=== PATIENT | male | born 1965 | race Caucasian/White ===

== ENCOUNTER 2018-08-01 06:16 | Day surgery (SDC) | payer OTHER ==
[~2018-08-01 06:16] MED LIST: Buffered Lidocaine 0.9% SYRIN* 5 ML/SYR SYRINGE INTRADERM ONE; Dexamethasone IV* 4 MG/ML 1 ML (4 MG) IV SLOW PU ONE
[2018-08-01] MEDS ORDERED: Buffered Lidocaine 0.9% SYRIN* 5 ML/SYR SYRINGE ONE (06:43)
[2018-08-01] MEDS ORDERED: Dexamethasone IV* 4 MG/ML 1 ML (4 MG) ONE (06:43)
[2018-08-01] MEDS ORDERED: ceFAZolin 2 GM in NS PREMIX(*) 2 GM/100 ML BAG IVPB ONE (06:44)
[2018-08-01] MEDS ORDERED: Atracurium* 10 MG/ML 10 ML VIAL ONE (07:15)
[2018-08-01] MEDS ORDERED: Midazolam* 1 MG/ML 5 ML VIAL (5 MG) ONE (07:15)
[2018-08-01] MEDS ORDERED: fentaNYL* 50 MCG/ML 2 ML VIAL (100 MCG VIAL) ONE ×2 (07:15→07:47)
[2018-08-01] MEDS ORDERED: Ondansetron INJ* 2 MG/ML VIAL ONE (07:16)
[2018-08-01] MEDS ORDERED: Lidocaine 2% PF * 5 ML VIAL ONE (07:16)
[2018-08-01] MEDS ORDERED: Propofol* 10 MG/ML 20 ML BTL IV PUSH ONE (07:16)
[2018-08-01] MEDS ORDERED: ROPIVACAINE 5 MG/ML 30 ML BTL (0.5%) ONE (07:21)
[2018-08-01] MEDS ORDERED: Ropivacaine* 2 MG/ML 20 ML VIAL (0.2%) ONE (07:36)
[2018-08-01] MEDS ORDERED: methylPREDNISolone ACETATE 80* 80 MG/ML 1 ML VIAL ONE (08:32)
[2018-08-01] MEDS ORDERED: Scopolamine 1.5 mg* PATCH TRANSDERM PRN (08:37)
[2018-08-01] MEDS ORDERED: fentaNYL* 50 MCG/ML 2 ML VIAL (100 MCG VIAL) IV PRN (08:37)
[2018-08-01] MEDS ORDERED: Ondansetron INJ* 2 MG/ML VIAL IV PRN (08:37)
[2018-08-01] MEDS ORDERED: HYDROmorphone INJ1* 1 MG/ML SYRINGE IV PRN (08:37)
[2018-08-01] MEDS ORDERED: DiMENhydriNATE IV* 50 MG/ML VIAL IV PUSH PRN (08:37)
[2018-08-01] MEDS ORDERED: oxyCODONE/Acetamin 5/325 MG* TAB PO PRN (08:37)
[2018-08-01] MEDS ORDERED: Naloxone* 0.4 MG/ML 1 ML VIAL IV PRN (08:37)
[2018-08-01 10:16] VITALS: BP 122/79
[2018-08-01] MEDS ORDERED: Ondansetron ODT TAB* 4 MG ONE (10:32)
--- NOTE | 2018-08-03 07:24 | OP ---
DATE OF OPERATION: 08/01/18 - [facility] DATE OF : 63. SURGEON: Elfego Frank M.D. DENTOFACIAL ORTHOPEDICS DENTIST: GILBERTO Barragan. An staff physical therapy assistant was present for the entirety of the case to help with positioning, retraction, and was utilized throughout all portions of the case. ANESTHESIOLOGIST: Dr. Malik. ANESTHESIA: General with interscalene block. PRE-OP DIAGNOSIS: Left shoulder impingement with possible rotator cuff tear and a superior labrum anterior and posterior type-2 tear. POST-OP DIAGNOSIS: Left shoulder impingement with possible rotator cuff tear and a superior labrum anterior and posterior type-2 tear. OPERATIVE PROCEDURE: Left shoulder arthroscopy with: 1. Extensive glenohumeral debridement. 2. Decompression with acromioplasty. 3. Subpectoral biceps tenodesis. 4. 80 mg injection of Depo-Medrol. INDICATIONS: Wesly Gomez is a 52-year-old male with persistent left shoulder pain refractory to conservative management. Risks and benefits of the surgery were discussed at length including, but not limited to bleeding; infection; damage to nerves, vessels, surrounding structures; wound nonhealing; persistent pain; need for further surgery; scarring; stiffness; incomplete relief of symptoms; and risks of anesthesia. He is elected to proceed with surgery. DESCRIPTION OF PROCEDURE: The patient was greeted in the preoperative area by the attending surgeon. Correct extremity was marked and the consent was confirmed. The patient underwent interscalene nerve block by the anesthesiologist after which he was brought back to the operative suite, he was placed in supine position on the operative table, he underwent general anesthesia and underwent endotracheal intubation after which he was placed in a right lateral decubitus position. All bony prominences were padded. He was secured with a peg board. The left arm was draped unsterile with 10 pounds of traction. The left shoulder was then prepped and draped in the usual sterile fashion beginning with chlorhexidine soap, scrub, and alcohol wipe. After appropriate surgical pause indicating side, site, and procedure, and administration of antibiotics, the standard posterolateral portal was made sharply with an 11-blade. Scope was introduced into the joint and the joint was examined. There was abundant hyperemia and erythematous tissue. There was evidence of type 2 SLAP tear with displacement. The undersurface of the supraspinatus was intact. The subscapularis had mild fraying less than 5%. The anterior portal was made in outside-in fashion. The shaver was used to debride back the anterior, posterior, and superior labrum. Biceps was tenotomized for later tenodesis. The undersurface of the subscap was then debrided back to make sure that it was less than 5% involving. Recess intact. There was grade 0 to 1 changes at the glenohumeral joint. Attention was then directed to the subacromial space. The scope was positioned in subacromial space. There was abundant bursa that was present. This was then debrided back using shaver. An electrocautery device was used to skeletonize the acromion. The acromioplasty was then done using a 4-0 oval bur. Once this was completed, attention was directed to the rotator cuff. The cuff was then gently probed with a blunt probe and there was very partial thickness tear was approximately 2 mm in bursal-sided tearing. This was then debrided back. The remainder of the cuff was found to be intact. The decision was made to not repair this instead debridement and injection. An 18-gauge was then placed under arthroscopic visualization, the later Depo- Medrol was placed. The attention was directed to the biceps. The bed was airplaned to the left side. The anterior aspect of the shoulder was prepped again using ChloraPrep. A 15-blade was used to make an incision in line with the biceps tendon. The soft tissues were carefully dissected to expose the pec fascia and the bicipital groove. The biceps was brought through the wound, had abundant synovitis and erythema. The groove was then prepared in usual fashion with electrocautery device, the red ball rasp, and the osteotome. The Q-FIX anchor was then deployed with excellent purchase. The sutures were then passed through the tendon in a Sea-Alexei type configuration. The excess stump was excised. The biceps were shovelled back to the wound and tied down. The wounds were then copiously irrigated with sterile saline. The anterior wound was closed in layers with 2-0 Vicryl and 3- 0 Monocryl. The portals were closed with 3-0 nylon. Sterile dressings were applied. The wounds were anteriorly injected with 0.25% Marcaine plain. Sterile dressings were applied, Cryo/Cuff and UltraSling were applied. He was awoken from anesthesia and transferred to PACU in stable condition. POSTOPERATIVE PLAN: He will be nonweightbearing. He will be in a sling for 4 weeks. He will start physical therapy approximately in 10 days. He will be discharged on pain medications and antibiotics. DVT prophylaxis was considered , but deferred due to no previous personal or family history. I will see the patient back in 10 to 14 days. [id number]/[facility] #: [id number] [facility]ITAL[facility]
== END 2018-08-01 10:56 | disposition home or self-care (01) ==
LOC: OR 06:16
PROVIDERS: ATTEND Orthopaedic Surgery
DX: M75.42 Impingement syndrome of left shoulder (principal); S43.432A Superior glenoid labrum lesion of left shoulder, initial encounter; G89.18 Other acute postprocedural pain; K21.9 Gastro-esophageal reflux disease without esophagitis; I10 Essential (primary) hypertension; Z87.891 Personal history of nicotine dependence; X58.XXXA Exposure to other specified factors, initial encounter; Y92.9 Unspecified place or not applicable
CPT/HCPCS: A9270-GY; C1776; J0690; J1040; J1100; J2250; J2405; J2704; J2795; J3010

== ENCOUNTER 2018-12-12 06:22 | Day surgery (SDC) | payer OTHER ==
[~2018-12-12 06:22] MED LIST changes: -Buffered Lidocaine 0.9% SYRIN* 5 ML/SYR SYRINGE INTRADERM ONE; +Buffered Lidocaine 1% SYRIN* 1 ML/SYRINGE INTRADERM ONE; -Dexamethasone IV* 4 MG/ML 1 ML (4 MG) IV SLOW PU ONE; +Famotidine IV* 10 MG/ML 2 ML (20 mg) IV ONE; +Famotidine IV* 10 MG/ML 2 ML (20 mg) ONE; +Lactated Ringers 1000 ML Bag* 1,000 ML IV SCH; +ceFAZolin 2 GM PREMIX in ORs 2 GM/50 ML BAG IVPB ONE
[2018-12-12] MEDS ORDERED: Midazolam* 1 MG/ML 5 ML VIAL (5 MG) ONE (07:21)
[2018-12-12] MEDS ORDERED: fentaNYL* 50 MCG/ML 2 ML VIAL (100 MCG VIAL) ONE ×2 (07:21→07:49)
[2018-12-12] MEDS ORDERED: ROPIVACAINE 5 MG/ML 30 ML BTL (0.5%) ONE (07:29)
[2018-12-12] MEDS ORDERED: Dexamethasone IV* 4 MG/ML 1 ML (4 MG) ONE (08:07)
[2018-12-12] MEDS ORDERED: Ketorolac INJ* 30 MG/ML 1 ML VIAL ONE (08:07)
[2018-12-12] MEDS ORDERED: Succinylcholine* 20 MG/ML 10 ML VIAL ONE (08:07)
[2018-12-12] MEDS ORDERED: Propofol* 10 MG/ML 20 ML BTL ONE (08:07)
[2018-12-12] MEDS ORDERED: Lidocaine 2% PF * 5 ML VIAL ONE (08:07)
[2018-12-12] MEDS ORDERED: Ondansetron INJ* 2 MG/ML VIAL ONE (08:07)
[2018-12-12] MEDS ORDERED: DiMENhydriNATE IV* 50 MG/ML VIAL IV PUSH PRN (08:45)
[2018-12-12] MEDS ORDERED: Naloxone* 0.4 MG/ML 1 ML VIAL IV PRN (08:45)
[2018-12-12] MEDS ORDERED: oxyCODONE TAB* 5 MG TAB PO PRN (08:45)
[2018-12-12] MEDS ORDERED: Acetaminophen TAB* 325 MG PO PRN (08:45)
[2018-12-12 09:35] VITALS: BP 114/93
--- NOTE | 2018-12-12 10:13 | OP ---
CC: PCP, Miri Brink NP * DATE OF OPERATION: 12/12/18 [facility] DATE OF : 63 SURGEON: Elfego Frank MD. GRAIN THRESHER: GILBERTO Dietrich. An assistant manager airside operations was needed for the entirety of the case to help with placement of the Regeneten patch. PRE-OP DIAGNOSIS: Left shoulder high-grade, partial thickness, bursal-sided tear. POST-OP DIAGNOSIS: Left shoulder high-grade, partial thickness, bursal-sided tear. OPERATIVE PROCEDURE: Left shoulder arthroscopy with revision subacromial decompression and rotator cuff repair with a Regeneten patch. IMPLANTS USED: One Regeneten patch, size medium, with appropriate tendon delfina and bone delfina. COMPLICATIONS: None. ESTIMATED BLOOD LOSS: Minimal. INDICATIONS: Wesly Gomez is a 52-year-old male who underwent a previous left shoulder arthroscopy with biceps tenodesis, decompression, debridement, and distal clavicle excision. He did well for some time, but he was more aggressive with returning to activities than I would have typically like and he subsequently developed pain and weakness. An MRI was obtained that demonstrates high-grade bursal-sided tear. The patient has failed conservative treatment and had elected to proceed with surgical treatment. DESCRIPTION OF PROCEDURE: The patient was greeted in the preoperative area by the attending surgeon. The correct extremity was marked. Consent was confirmed. The patient underwent interscalene nerve block by the anesthesiologist after which he was brought to the operating suite where he was placed in supine position on the operating table. He then underwent general anesthesia endotracheal intubation after which he was placed in the right lateral decubitus position with all bony prominences padded. He was secured with a pegboard. Left arm was draped unsterile with 10 pounds of traction. Left shoulder was then prepped and draped in the usual sterile fashion beginning with chlorhexidine soap, scrub, and alcohol and a final prep of ChloraPrep. After appropriate surgical pause indicating side, site, procedure, administration of antibiotics, the standard posterolateral portal was made sharply with 11 blade. Scope was introduced into the joint. The joint was examined. The glenohumeral joint had grade 0 to 1 changes. The undersurface of the rotator cuff was completely intact and pristine. He did have some erythema about the joint itself, but overall the tissue quality was good. There is no evidence of tearing. The glenohumeral joint was inspected with the inferior recess and the anteroposterior labrum with mild fraying. The scope was positioned in the subacromial space. With the scope positioned in the subacromial space, there was [id number] bursa that was present. There was obvious high-grade partial thickness bursal- sided tear. It did not appear to completely communicate. Decision was made to Regeneten patch but first a small bursectomy was done. The shaver was used to debride back the bursa. The undersurface of the acromion was skeletonized using electrocautery device. There was some irregularity. This was then debrided back using 4-0 oval ankush to further plane down the spur. At this point , attention was directed to the rotator cuff. The shaver was used to debride back in the unstable flap. A size medium Regeneten patch was then brought to the field and placed in the appropriate position. This was secured medially with tendon delfina and then laterally with bone delfina. This was found to be stable. Shoulder was taken through gentle range of motion and the patch was found to be stable. Final images were obtained. The wounds were copiously irrigated with sterile saline. Portals were closed with 3-0 nylon. Sterile dressings were applied. A Cryo/Cuff and regular sling were then applied. He was awoken from anesthesia and transferred to PACU in stable condition. POSTOPERATIVE PLAN: He will be nonweightbearing. He will be in the sling for a few days. He will start passive range of motion and therapy per the Regeneten protocol. I will see the patient back in 10 to 14 days. He will be discharged with antibiotics as this is a revision surgery. DVT prophylaxis was considered , but deferred due to no previous personal or family history. I will see the patient back in 10 to 14 days. [id number]/[facility] #: [id number] [facility]
== END 2018-12-12 09:56 | disposition home or self-care (01) ==
LOC: OREAST 06:22
PROVIDERS: ATTEND Orthopaedic Surgery
DX: S46.012A Strain of muscle(s) and tendon(s) of the rotator cuff of left shoulder, initial encounter (principal); X50.9XXA Other and unspecified overexertion or strenuous movements or postures, initial encounter; Y92.9 Unspecified place or not applicable; G89.18 Other acute postprocedural pain; I10 Essential (primary) hypertension; Z87.891 Personal history of nicotine dependence
CPT/HCPCS: C1713; J0330; J0690; J1100; J1885; J2250; J2405; J2704; J2795; J3010